=== PATIENT | male | born 1985 | race African-American/Black ===

== ENCOUNTER 2018-09-03 19:01 | Emergency (ER) | payer OTHER ==
[~2018-09-03] VITALS: Ht 182.9 cm; Wt 86.8 kg
[~2018-09-03 19:01] MED LIST: DIVA500T52 PO; QUET200XR PO
[2018-09-03 19:42] LABS: BASOPHILS % (AUTO) 1.2 % (0.0-2.0); EOSINOPHILS % (AUTO) 1.4 % (1.0-6.0); HEMATOCRIT 38.8 % (41-53); HEMOGLOBIN 13.1 g/dL (13.5-17.5); LYMPHOCYTES # (AUTO) 1.6 K/uL (1.0-4.8); LYMPHOCYTES % (AUTO) 21.8 % (22.0-44.0); MEAN CORPUSCULAR HEMOGLOBIN 29.7 pg (26.0-34.0); MEAN CORPUSCULAR HGB CONC 33.9 G/dL (31.0-37.0); MEAN CORPUSCULAR VOLUME 88 fL (80-100); MONOCYTES # (AUTO) 0.4 K/uL (0.1-1.0); MONOCYTES % (AUTO) 5.5 % (2.0-9.0); NEUTROPHILS # (AUTO) 5.1 K/uL (1.8-7.7); NEUTROPHILS % (AUTO) 70.1 % (40.0-70.0); PLATELET COUNT (AUTO) 197 K/uL (150-450); RED BLOOD CELL COUNT(AUTO) 4.42 MIL/uL (4.50-5.90); RED CELL DISTRIBUTION WIDTH 13.1 % (11.5-14.5)
[2018-09-03 20:37] LABS: ALANINE AMINOTRANSFERASE 24 U/L (12-78); ALBUMIN 3.4 g/dL (3.4-5.0); ALKALINE PHOSPHATASE 54 U/L (46-116); ANION GAP 5 mmol/L (8-16); ASPARTATE AMINOTRANSFERASE 25 U/L (15-37); BILIRUBIN,TOTAL 0.3 mg/dL (0.1-1.0); CARBON DIOXIDE 30 mmol/L (22-29); CHLORIDE 102 mmol/L (98-107); CREATININE 1.23 mg/dL (0.60-1.30); GLOMERULAR FILTR. RATE CALC > 60 mL/min (>60); GLUCOSE,RANDOM 92 mg/dL (70-110); POTASSIUM 3.8 mmol/L (3.5-5.1); SODIUM SERUM 137 mmol/L (136-145); UREA NITROGEN, BLOOD 19 mg/dL (7-18)
[2018-09-03 20:54] LABS: VALPROIC ACID < 3 mcg/mL (50-100)
[2018-09-03 21:51] LABS: APPEARANCE,URINE CLOUDY (CLEAR); BILIRUBIN,URINE NEGATIVE (NEGATIVE); GLUCOSE, URINE (UA) NEGATIVE (NEGATIVE); KETONES,URINE NEGATIVE (NEGATIVE); LEUKOCYTE ESTERASE ,URINE MODERATE (NEGATIVE); NITRATE,URINE NEGATIVE (NEGATIVE); OCCULT BLOOD,URINE NEGATIVE (NEGATIVE); PH,URINE 6.5 (5.0-8.0); PROTEIN,URINE NEGATIVE (NEGATIVE)
[2018-09-03 21:56] LABS: AMPHET/METH SCREEN,URINE POSITIVE (NEGATIVE); BARBITURATE SCREEN, URINE NEGATIVE (NEGATIVE); BENZODIAZEPINES SCREEN,URINE POSITIVE (NEGATIVE); CANNABINOID SCREEN,URINE POSITIVE (NEGATIVE); COCAINE SCREEN,URINE NEGATIVE (NEGATIVE); METHADONE SCREEN, URINE NEGATIVE (NEGATIVE); OPIATE SCREEN,URINE NEGATIVE (NEGATIVE)
[2018-09-03 22:09] LABS: PHENCYCLIDINE SCREEN,URINE POSITIVE (NEGATIVE)
[2018-09-03 22:27] LABS: ACETAMINOPHEN < 2 mcg/mL (10-30)
[2018-09-03 22:31] LABS: SALICYLATE 3.1 mg/dL (2.8-20.0)
[2018-09-03 22:35] LABS: BACTERIA,URINE Few /HPF (None Seen)
[2018-09-03 22:36] LABS: RBC,URINE 0-2 /HPF (0-2); SQUAMOUS EPITHELIAL CELL,UR Few /LPF (None Seen)
[2018-09-03 23:36] VITALS: BP 122/74
== END 2018-09-04 00:02 | disposition home or self-care (01) ==
LOC: EMS 19:04
DX: F19.10 Other psychoactive substance abuse, uncomplicated (principal); Z79.899 Other long term (current) drug therapy
CPT/HCPCS: 36415; 80053; 80164; 80307; 81001; 82962; 85025; 87077; 87086; 87186; 93005; 99285; G0480; G0481

== ENCOUNTER 2024-10-08 12:46 | Emergency (ER) | payer MEDICAID ==
[~2024-10-08] VITALS: Ht 182.9 cm; Wt 101.0 kg
[~2024-10-08 12:46] MED LIST changes: +DIVA-153 PO; -DIVA500T52 PO; +QUET200T5 PO; -QUET200XR PO
[2024-10-08 13:50] VITALS: TEMP 98.5
[2024-10-08 14:19] LABS: BASOPHILS % (AUTO) 0.7 % (0.0-2.0); EOSINOPHILS % (AUTO) 0.8 % (1.0-6.0); HEMATOCRIT 39.4 % (41-53); LYMPHOCYTES # (AUTO) 2.7 K/uL (1.0-4.8); LYMPHOCYTES % (AUTO) 36.4 % (22.0-44.0); MEAN CORPUSCULAR HEMOGLOBIN 29.1 pg (26.0-34.0); MEAN CORPUSCULAR HGB CONC 32.9 G/dL (31.0-37.0); MEAN CORPUSCULAR VOLUME 89 fL (80-100); MONOCYTES # (AUTO) 0.6 K/uL (0.1-1.0); MONOCYTES % (AUTO) 8.2 % (2.0-9.0); NEUTROPHILS % (AUTO) 53.9 % (40.0-70.0); PLATELET COUNT (AUTO) 229 K/uL (150-450); RED BLOOD CELL COUNT(AUTO) 4.46 MIL/uL (4.50-5.90); RED CELL DISTRIBUTION WIDTH 13.6 % (11.5-14.5); WHITE BLOOD COUNT (AUTO) 7.4 K/uL (4.5-11.0)
[2024-10-08 14:27] LABS: COVID AG,FIA SOURCE NASAL SWAB
[2024-10-08 14:41] LABS: CHLORIDE 105 mmol/L (98-107); POTASSIUM 3.7 mmol/L (3.5-5.1); SODIUM SERUM 141 mmol/L (136-145)
[2024-10-08 14:43] LABS: ANION GAP 6 mmol/L (8-16); CALCIUM, TOTAL 9.1 mg/dL (8.8-10.5); CARBON DIOXIDE 30 mmol/L (22-29); CREATININE 1.11 mg/dL (0.60-1.30); GLOMERULAR FILTR. RATE CALC > 60 mL/min (>60); GLUCOSE,RANDOM 110 mg/dL (70-110); UREA NITROGEN, BLOOD 20 mg/dL (7-18)
[2024-10-08 14:58] LABS: ALCOHOL, BLOOD (SERUM) < 3 mg/dL (0-10)
[2024-10-08 15:02] LABS: SARS-COV2 (COVID) ANTIGEN,FIA Negative (Negative)
[2024-10-08 15:03] LABS: ALCOHOL, URINE DRUG SCREEN NEGATIVE (NEGATIVE); AMPHET/METH SCREEN,URINE POSITIVE (NEGATIVE); BARBITURATE SCREEN, URINE NEGATIVE (NEGATIVE); BENZODIAZEPINES SCREEN,URINE NEGATIVE (NEGATIVE); CANNABINOID SCREEN,URINE POSITIVE (NEGATIVE); COCAINE SCREEN,URINE NEGATIVE (NEGATIVE); METHADONE SCREEN, URINE NEGATIVE (NEGATIVE); OPIATE SCREEN,URINE NEGATIVE (NEGATIVE); PHENCYCLIDINE SCREEN,URINE POSITIVE (NEGATIVE)
[2024-10-08 17:02] VITALS: BP 137/72; PULSE 67; RESP 16; O2SAT 98
== END 2024-10-08 18:32 | disposition short-term general hospital (02) ==
LOC: EMS 12:51
DX: S90.31XA Contusion of right foot, initial encounter (principal); F15.10 Other stimulant abuse, uncomplicated; F25.9 Schizoaffective disorder, unspecified; F16.10 Hallucinogen abuse, uncomplicated; Z79.899 Other long term (current) drug therapy; Z20.822 Contact with and (suspected) exposure to COVID-19; W22.8XXA Striking against or struck by other objects, initial encounter; Y93.89 Activity, other specified; Y92.89 Other specified places as the place of occurrence of the external cause; Y99.8 Other external cause status
CPT/HCPCS: 99285; 87426; 80048; 85025; 36415; 73630; 80307; G0480

== ENCOUNTER 2024-11-07 07:42 | Emergency (ER) | payer OTHER ==
[~2024-11-07] VITALS: Ht 180.3 cm; Wt 111.4 kg
[2024-11-07] MEDS: LORazepam 1 MG TABLET PO ONE (08:15)
[2024-11-07 08:27] LABS: BASOPHILS % (AUTO) 0.8 % (0.0-2.0); EOSINOPHILS % (AUTO) 2.4 % (1.0-6.0); HEMATOCRIT 37.5 % (41-53); HEMOGLOBIN 12.4 g/dL (13.5-17.5); LYMPHOCYTES # (AUTO) 2.1 K/uL (1.0-4.8); LYMPHOCYTES % (AUTO) 36.5 % (22.0-44.0); MEAN CORPUSCULAR HEMOGLOBIN 29.3 pg (26.0-34.0); MEAN CORPUSCULAR HGB CONC 32.9 G/dL (31.0-37.0); MEAN CORPUSCULAR VOLUME 89 fL (80-100); MONOCYTES # (AUTO) 0.4 K/uL (0.1-1.0); MONOCYTES % (AUTO) 6.6 % (2.0-9.0); NEUTROPHILS # (AUTO) 3.1 K/uL (1.8-7.7); NEUTROPHILS % (AUTO) 53.7 % (40.0-70.0); PLATELET COUNT (AUTO) 245 K/uL (150-450); RED BLOOD CELL COUNT(AUTO) 4.21 MIL/uL (4.50-5.90); RED CELL DISTRIBUTION WIDTH 14.3 % (11.5-14.5); WHITE BLOOD COUNT (AUTO) 5.8 K/uL (4.5-11.0)
[2024-11-07 08:33] LABS: ANION GAP 5 mmol/L (8-16); CALCIUM, TOTAL 9.1 mg/dL (8.8-10.5); CARBON DIOXIDE 31 mmol/L (22-29); CHLORIDE 107 mmol/L (98-107); CREATININE 1.17 mg/dL (0.60-1.30); GLOMERULAR FILTR. RATE CALC > 60 mL/min (>60); GLUCOSE,RANDOM 88 mg/dL (70-110); POTASSIUM 4.2 mmol/L (3.5-5.1); SODIUM SERUM 143 mmol/L (136-145); UREA NITROGEN, BLOOD 19 mg/dL (7-18)
[2024-11-07 12:53] VITALS: BP 135/91; PULSE 56; RESP 18; TEMP 98; O2SAT 99
== END 2024-11-07 14:54 | disposition home or self-care (01) ==
LOC: EMS 07:42
DX: F20.0 Paranoid schizophrenia (principal); R56.9 Unspecified convulsions
CPT/HCPCS: 99284; 80048; 85025; 36415; G0480

== ENCOUNTER 2025-03-03 10:50 | Inpatient (IN) | payer MEDICAID, OTHER ==
[~2025-03-03] VITALS: Ht 172.7 cm; Wt 89.9 kg
[~2025-03-03 10:50] MED LIST changes: +DIVA-112 PO; -DIVA-153 PO; +PHEN100C74 PO; +QUET200T PO; -QUET200T5 PO
[2025-03-03] MEDS ORDERED: DOCU-385 PO (12:59)
[2025-03-03] MEDS ORDERED: LEVE250T81 PO (13:01)
[2025-03-03] MEDS ORDERED: LORA2TAB18 PO (13:03)
[2025-03-03] MEDS ORDERED: HALO5TAB23 PO (13:06)
[2025-03-03 17:41] VITALS: BP 122/59; PULSE 57; RESP 18; TEMP 98.6; O2SAT 100
[2025-03-03 17:46] VITALS: BP 122/59; PULSE 57; RESP 18; TEMP 98.6; O2SAT 100
[2025-03-03] MEDS ORDERED: MAG HYDROX/ALUMINUM HYD/SIMETH ES 30 ML SUSPENSION UDCUP PO PRN (18:15)
[2025-03-03] MEDS ORDERED: MAGNESIUM HYDROXIDE SUSPENSION 30 ML UDCUP PO PRN (18:15)
[2025-03-03] MEDS ORDERED: GuaiFENesin/D-METHORPHAN [SUGAR-FREE] 200-20MG/10 ML SYRUP UDCUP PO PRN (18:15)
[2025-03-03] MEDS ORDERED: LOPERAMIDE HCL 2 MG CAPSULE PO PRN (18:15)
[2025-03-03] MEDS ORDERED: IBUPROFEN 400 MG TABLET PO PRN (18:15)
[2025-03-03] MEDS ORDERED: NICOTINE 14 MG/24 HOUR PATCH TD PRN (18:15)
[2025-03-03] MEDS ORDERED: DOCUSATE SODIUM 100 MG CAPSULE PO PRN (18:15)
[2025-03-03] MEDS ORDERED: ALBUTEROL SULFATE HFA 90 MCG/PUFF 8 GM INHALER IH PRN (18:15)
[2025-03-03] MEDS ORDERED: ONDANSETRON 4 MG TABLET PO PRN (18:15)
[2025-03-03] MEDS ORDERED: PETROLATUM,WHITE 28 GM JELLY TP PRN (18:15)
[2025-03-03 20:18] VITALS: BP 125/78; PULSE 68; RESP 17; TEMP 97.7; O2SAT 98
[2025-03-03] MEDS: DIVALPROEX SODIUM 500 MG DR TABLET PO SCH (21:23)
[2025-03-04 08:16] VITALS: BP 125/60; PULSE 60; RESP 17; TEMP 97.9; O2SAT 100
[2025-03-04 08:33] LABS: PLATELET COUNT (AUTO) 227 K/uL (150-450); RED BLOOD CELL COUNT(AUTO) 4.61 MIL/uL (4.50-5.90); RED CELL DISTRIBUTION WIDTH 13.4 % (11.5-14.5); WHITE BLOOD COUNT (AUTO) 6.5 K/uL (4.5-11.0)
[2025-03-04] MEDS: PHENYTOIN SODIUM 100 MG ER CAPSULE PO SCH (08:54)
[2025-03-04] MEDS ORDERED: DIVALPROEX SODIUM 500 MG DR TABLET PO SCH (09:00)
[2025-03-04 09:07] LABS: ASPARTATE AMINOTRANSFERASE 16 U/L (15-37); CALCIUM, TOTAL 8.4 mg/dL (8.8-10.5); CREATININE 1.01 mg/dL (0.60-1.30); GLOMERULAR FILTR. RATE CALC > 60 mL/min (>60); GLUCOSE,RANDOM 85 mg/dL (70-110); SODIUM SERUM 140 mmol/L (136-145); TOTAL PROTEIN, SERUM 6.5 g/dL (6.4-8.2); UREA NITROGEN, BLOOD 16 mg/dL (7-18)
[2025-03-04 09:11] LABS: CHOL/HDL RATIO 4.0 (4.2-7.3); LDL CHOL (CALC.) 58.0 mg/dL (0-130)
[2025-03-04 20:38] VITALS: BP 120/67; PULSE 66; RESP 16; TEMP 98.3; O2SAT 99
[2025-03-05 08:22] VITALS: BP 116/60; PULSE 57; RESP 18; TEMP 98.4; O2SAT 99
[2025-03-05 09:26] LABS: APPEARANCE,URINE CLEAR (CLEAR); GLUCOSE, URINE (UA) NEGATIVE (NEGATIVE); LEUKOCYTE ESTERASE ,URINE LARGE (NEGATIVE); NITRATE,URINE NEGATIVE (NEGATIVE); OCCULT BLOOD,URINE NEGATIVE (NEGATIVE); PH,URINE DRUG SCREEN 6.5 (5.0-8.0); SPECIFIC GRAVITIY, URINE 1.020 (1.003-1.030)
[2025-03-05 09:35] LABS: ALCOHOL, URINE DRUG SCREEN NEGATIVE (NEGATIVE); AMPHET/METH SCREEN,URINE NEGATIVE (NEGATIVE); BARBITURATE SCREEN, URINE NEGATIVE (NEGATIVE); CANNABINOID SCREEN,URINE POSITIVE (NEGATIVE); COCAINE SCREEN,URINE NEGATIVE (NEGATIVE); METHADONE SCREEN, URINE NEGATIVE (NEGATIVE)
[2025-03-05 10:17] LABS: SQUAMOUS EPITHELIAL CELL,UR Few /LPF (None Seen)
[2025-03-05 20:57] VITALS: BP 121/70; PULSE 60; RESP 19; TEMP 98.6; O2SAT 100
[2025-03-06 09:05] VITALS: BP 122/75; PULSE 61; RESP 18; TEMP 97.8; O2SAT 100
[2025-03-06 20:15] VITALS: BP 127/68; PULSE 67; RESP 17; TEMP 98.2; O2SAT 100
[2025-03-07] MEDS: LEVOTHYROXINE SODIUM 50 MCG TABLET PO SCH (06:26)
[2025-03-07 13:32] VITALS: BP 113/64; PULSE 63; RESP 17; TEMP 98.2; O2SAT 99
[2025-03-07 20:12] VITALS: BP 116/58; PULSE 68; RESP 18; TEMP 97.7; O2SAT 99
[2025-03-08 08:50] VITALS: BP 108/74; PULSE 67; RESP 16; TEMP 98.4; O2SAT 100
[2025-03-08] MEDS: CEPHALEXIN MONOHYDRATE 250 MG CAPSULE PO SCH (10:17)
[2025-03-08 20:17] VITALS: RESP 17
[2025-03-09] MEDS: FERROUS SULFATE 325 MG EC TABLET PO SCH (06:11)
[2025-03-09 08:33] VITALS: BP 111/76; PULSE 75; RESP 18; TEMP 98; O2SAT 98
[2025-03-09 20:13] VITALS: BP 139/84; PULSE 77; RESP 18; TEMP 98; O2SAT 99
[2025-03-10 08:20] VITALS: BP 106/71; PULSE 71; RESP 16; TEMP 97.3; O2SAT 100
[2025-03-10 20:00] VITALS: BP 115/63; PULSE 50; RESP 17; TEMP 96.3; O2SAT 99
[2025-03-11 08:33] VITALS: BP 112/61; PULSE 80; RESP 17; TEMP 97.1; O2SAT 98
[2025-03-11 20:16] VITALS: BP 106/68; PULSE 78; RESP 18; TEMP 97.8; O2SAT 99
[2025-03-12 08:46] VITALS: BP 118/68; PULSE 61; RESP 17; TEMP 97.6; O2SAT 99
[2025-03-12 20:23] VITALS: BP 111/62; PULSE 70; RESP 17; TEMP 98.2; O2SAT 98
[2025-03-13 09:00] VITALS: BP 116/62; PULSE 61; RESP 17; TEMP 97.9; O2SAT 100
[2025-03-13 17:47] VITALS: RESP 18; O2SAT 100
[2025-03-13] MEDS: ACETAMINOPHEN 325 MG TABLET PO PRN (17:47)
[2025-03-13 18:47] VITALS: RESP 17; O2SAT 100
[2025-03-13 21:11] VITALS: BP 110/64; PULSE 59; RESP 18; TEMP 98.4; O2SAT 99
[2025-03-14 08:36] VITALS: BP 106/63; PULSE 72; RESP 15; TEMP 98.1; O2SAT 100
[2025-03-14] MEDS: ACETAMINOPHEN 500 MG TABLET PO ONE (19:07)
[2025-03-14 20:36] VITALS: BP 108/67; PULSE 68; RESP 17; TEMP 98.1; O2SAT 99
[2025-03-15 08:24] VITALS: BP 107/75; PULSE 62; RESP 16; TEMP 97.5; O2SAT 100
[2025-03-15 20:18] VITALS: BP 105/88; PULSE 75; RESP 18; TEMP 97.9; O2SAT 100
[2025-03-16 08:18] VITALS: BP 141/60; PULSE 84; RESP 18; TEMP 97.3; O2SAT 100
== END 2025-03-16 16:15 | disposition left against medical advice (07) | DRG 750 ==
LOC: B2S 16:32
PROVIDERS: ADMIT Psychiatry & Neurology Psychiatry; ATTEND Psychiatry & Neurology Child & Adolescent Psychiatry
PROC: GZ56ZZZ Individual Psychotherapy, Supportive (ICD-10-PCS; 2025-03-04)
PROC: GZ58ZZZ Individual Psychotherapy, Cognitive-Behavioral (ICD-10-PCS; 2025-03-04)
PROC: GZ52ZZZ Individual Psychotherapy, Cognitive (ICD-10-PCS; principal; 2025-03-07)
DX: F25.1 Schizoaffective disorder, depressive type (principal); G40.89 Other seizures; D64.9 Anemia, unspecified; G47.00 Insomnia, unspecified; N39.0 Urinary tract infection, site not specified; K59.00 Constipation, unspecified; F11.10 Opioid abuse, uncomplicated; F15.10 Other stimulant abuse, uncomplicated; Z53.29 Procedure and treatment not carried out because of patient's decision for other reasons; Z59.00 Homelessness unspecified
CPT/HCPCS: 80053; 80061; 80185; 80307; 81001; 83036; 84439; 84443; 85025; 87081; 87086

== ENCOUNTER 2025-03-14 20:57 | Emergency (ER) | payer MEDICAID, OTHER ==
[~2025-03-14] VITALS: Ht 175.3 cm; Wt 90.0 kg
[~2025-03-14 20:57] MED LIST changes: +DOCU-385 PO; +HALO5TAB23 PO; +LEVE250T81 PO; +LORA2TAB18 PO
[2025-03-14 21:44] LABS: COVID AG,FIA SOURCE NASAL SWAB
[2025-03-14 22:05] LABS: SARS-COV2 (COVID) ANTIGEN,FIA Negative (Negative)
[2025-03-14 22:06] LABS: INFLUENZA TYPE A NEGATIVE FOR TYPE A (NEGATIVE); INFLUENZA TYPE B NEGATIVE FOR TYPE B (NEGATIVE)
[2025-03-14 22:23] VITALS: TEMP 98.4
[2025-03-15 01:46] VITALS: BP 138/67; PULSE 53; RESP 16; O2SAT 98
== END 2025-03-15 01:13 | disposition home or self-care (01) ==
LOC: EMS 20:57
DX: R68.83 Chills (without fever) (principal); E03.9 Hypothyroidism, unspecified; F20.9 Schizophrenia, unspecified; F32.A Depression, unspecified; G40.909 Epilepsy, unspecified, not intractable, without status epilepticus; F12.90 Cannabis use, unspecified, uncomplicated; F17.210 Nicotine dependence, cigarettes, uncomplicated; F15.90 Other stimulant use, unspecified, uncomplicated; Z79.899 Other long term (current) drug therapy; Z20.822 Contact with and (suspected) exposure to COVID-19
CPT/HCPCS: 87804; 99285; Z7502